=== PATIENT | male | born 1990 | race Caucasian/White ===

== ENCOUNTER 2021-04-24 11:33 | Emergency (ER) | payer OTHER ==
[~2021-04-24] VITALS: Ht 175.2 cm; Wt 72.6 kg
== END 2021-04-24 13:06 | disposition home or self-care (01) ==
LOC: ED 11:33
DX: T63.441A Toxic effect of venom of bees, accidental (unintentional), initial encounter (principal); Y92.89 Other specified places as the place of occurrence of the external cause

== ENCOUNTER 2021-11-20 09:31 | Emergency (ER) | payer OTHER ==
[2021-11-20] MEDS ORDERED: PREDNISONE10 MG PO (09:56)
[2021-11-20] MEDS ORDERED: EPIPEN 2-P0.3 MG/0.3 IJ (09:56)
== END 2021-11-20 10:35 | disposition home or self-care (01) ==
LOC: ED 09:31
DX: T63.441A Toxic effect of venom of bees, accidental (unintentional), initial encounter (principal); Y92.89 Other specified places as the place of occurrence of the external cause